=== PATIENT | male | born 1950 | race Caucasian/White ===

== ENCOUNTER 2021-05-18 18:47 | Emergency (ER) | payer MEDICARE, BC ==
[2021-05-18] MEDS ORDERED: Diphtheria,Pertussis(Acell),Tetanus Vaccine 0.5 ML Syringe IM ONE (18:49)
[2021-05-18] MEDS ORDERED: Bupivacaine 0.25% 30 ML SDV INJECT PRN (18:49)
--- NOTE | 2021-05-18 19:26 | CR ---
[id number] RAD/RAD Fingers Left Exam: RAD Fingers Left Indication:TRAUMA, TABLE SAW Comparison: No prior imaging for comparison. Discussion/Impression: Acute fracture and laceration of the 3rd digit involving middle and distal phalanges. Fractures markedly comminuted. Interphalangeal articulation is obliterated. Proximally, fracture may extend to the PIP articulation as well along its ulnar aspect on AP view. No evidence of fracture involving the proximal phalanx. Oskar Ochoa MD 05/18/21 0585 Thank you for allowing us to participate in the care of your patient.
[2021-05-18] MEDS ORDERED: cefTRIAXone 2 GM Vial IVPUSH ONE (20:01)
[2021-05-18] MEDS ORDERED: Sodium Chloride 0.9% 10 ML Syringe FLUSH PRN (20:01)
--- NOTE | 2021-05-18 20:07 | EDM.PDOC ---
ED HPI GENERAL MEDICAL PROBLEM - General Chief Complaint: Laceration Stated Complaint: LACERATION TO FINGER Time Seen by Provider: 05/18/21 18:49 Source of Information: Reports: Patient History Limitations: Reports: No Limitations - History of Present Illness INITIAL COMMENTS - FREE TEXT/NARRATIVE: Patient lives locally and was cutting boards with his table saw and accidentally caught his glove and sustained an injury to the left third finger. He is right handed. No previous injury. Takes an aspirin a day. Unsure of his tetanus, small abrasion to the index finger at the nail tip. - Related Data Allergies Allergy/AdvReac Type Severity Reaction Status Date / Time oxycodone Allergy Nausea and Verified 05/18/21 18:52 Vomiting Home Meds: Home Meds Hydrocodone/Acetaminophen [HYDROcodone-Acetaminophen 5-325 MG] 1 each PO Q6H PRN #30 tab 05/18/21 [Rx] cephALEXin [Keflex] 500 mg PO Q8H 5 Days #20 cap 05/18/21 [Rx] Past Medical History Musculoskeletal History: Reports: Gout Social & Family History - Tobacco Use Tobacco Use Status *Q: Unknown Ever Used Tobacco - Alcohol Use Alcohol Use History: Yes - Recreational Drug Use Recreational Drug Use: No Drug Use in Last 12 Months: No - Living Situation & Occupation Living situation: Reports: with Spouse ED ROS GENERAL - Review of Systems Review Of Systems: See Below Constitutional: Reports: No Symptoms HEENT: Reports: No Symptoms Respiratory: Reports: No Symptoms Cardiovascular: Reports: Dyspnea on Exertion Endocrine: Reports: No Symptoms GI/Abdominal: Reports: No Symptoms : Reports: No Symptoms Musculoskeletal: Reports: Other (left thrid finger laceration and pain) ED EXAM, SKIN/RASH Exam: See Below Exam Limited By: No Limitations General Appearance: Alert, WD/WN, No Apparent Distress Eye Exam: Bilateral Eye: EOMI, Normal Inspection, PERRL Ears: Normal External Exam Throat/Mouth: Normal Inspection, Normal Lips, Normal Voice, No Airway Compromise Head: Atraumatic Neck: Normal Inspection, Supple Respiratory/Chest: No Respiratory Distress, Lungs Clear, Normal Breath Sounds Cardiovascular: Normal Peripheral Pulses, Regular Rate, Rhythm GI/Abdominal: Normal Bowel Sounds, Soft Extremities: Other (left third finger with 7 cm large laceration with bone and tendon involvement. Nail intact. Senstion limited distally. able to flex and extend at te mcp and pip joints. angulation of the distal finger. also small abrasion of the distal index finger, no laceration or suturable repair) ED SKIN PROCEDURES - Laceration/Wound Repair Digit - 3rd (Middle) Appearance: Muscle (and bone), Mildly Contaminated Distal NVT: Other (bone and tendon involvement with limited sensation distally) Anesthetic Type: Digital Local Anesthesia - Bupivicaine (Marcaine): 0.25% Plain Local Anesthetic Volume: Other (10) Skin Prep: Saline Exploration/Debridement/Repair: Wound Explored, Other (multiple bone fragments, tendon injury, ) Closed with: Sutures Lac/Wound length In cm: 7.0 Suture Size: 4-0 # of Sutures: 12 (some horizontal mattress) Suture Type: Interrupted Sterile Dressing Applied: Nurse Tetanus Status Addressed: Yes (given) Progress/Comments: xeroform gauze and tube gauze. Finger is now straight. sensation unable to be checked due to digital block Course - Vital Signs Last Recorded V/S: Last Vital Signs Temp 35.6 C L 05/18/21 18:47 Pulse 63 05/18/21 18:47 Resp 18 05/18/21 18:47 BP 149/73 H 05/18/21 18:47 Pulse Ox 98 05/18/21 18:47 - Orders/Labs/Meds Orders: Active Orders 24 hr Category Date Time Status Vaccine to be Administered/Admin Charge [RC] ASDIRECTED Care 05/18/21 18:50 Active Bupivacaine 0.25% [Marcaine 0.25%] Med 05/18/21 18:49 Active 30 ml INJECT ASDIRECTED PRN Medication Orders Bupivacaine HCl (Bupivacaine 0.25% 30 Ml Sdv) 30 ml INJECT ASDIRECTED PRN PRN Reason: Other Last Admin: 05/18/21 19:28 Dose: 30 ml Documented by: JESSY Meds: Medications Generic Name Dose Route Start Last Admin Trade Name Freq PRN Reason Stop Dose Admin Bupivacaine HCl 30 ml 05/18/21 18:49 05/18/21 19:28 Bupivacaine 0.25% 30 Ml Sdv INJECT 30 ml ASDIRECTED PRN Administration Other Discontinued Medications Generic Name Dose Route Start Last Admin Trade Name Freq PRN Reason Stop Dose Admin Diphtheria/Tetanus/Acell Pertussis 0.5 ml 05/18/21 18:49 05/18/21 19:28 Diphtheria,Pertussis(Acell),Tetanus Vaccine 0.5 Ml Syringe IM 05/18/21 18:50 0.5 ml .ONCE ONE Administration - Radiology Interpretation Free Text/Narrative:: acute fracture and laceration of the 3rd digit involving middle and distal phalanges. fractures markedly comminuted. interphalangeal articulation is obliterated. Proxiamlly the fracture may extend to the PIP articulation as well as along its ulnar aspect on ap view. Post suture films with better alignment of the fracture pieces - Re-Assessments/Exams Free Text/Narrative Re-Assessment/Exam: 05/18/21 20:09 able to approximate the wound margins. Finger is straight, dressing applied. given tetanus and 2 grams of rocephin IV. CAll to DR. Marie, orthopedics electronic device monitor for [facility] to coordinate surgery. 05/18/21 20:43 They will call to set up. Patient given rocpehin and tetanus here. sent home on keflex and hydrocodone. has had allergic reaction in the past. will call if they have problems. return for signs of infection. will have surgery after the distal blood supply establishes itself Departure - Departure Time of Disposition: 20:37 Disposition: Home, Self-Care 01 Clinical Impression: Open fracture of finger of left hand - Discharge Information Prescriptions: Hydrocodone/Acetaminophen [HYDROcodone-Acetaminophen 5-325 MG] 1 each PO Q6H PRN #30 tab PRN Reason: Pain cephALEXin [Keflex] 500 mg PO Q8H 5 Days #20 cap Instructions: Finger Fracture, Adult, [id number] Referrals: Juvenal Akins PA-C [Primary Care Provider] - Additional Instructions: You have an open fracture of the finger. Sutures were placed to approximate the wound. Dr. Marie at [facility] will be calling to schedule an appointment with you in the next 5-7 days. Elevated the hand. Do not use the hand. Keep the dressing in place for the next 36 hours. Then you can remove it and if it is sticking to the wound, apply some water and gently peel off. Apply antibiotic ointment and a non stick dressing and bandage. Make sure to splint the finger along side the 4th finger also. Use the pain medication every 6 hours as needed for pain. This will cause constipation. You were given an antibiotic in the ED. STart the oral antibiotic tomorrow Call for itching or allergic reaction to switch pain medication. If redness, drainage or fever develops, return to the ED. Surgery will be required to help this. Sepsis Event Note (ED) - Focused Exam Vital Signs: Vital Signs Temp Pulse Resp BP Pulse Ox 05/18/21 18:47 35.6 C L 63 18 149/73 H 98 - My Orders Last 24 Hours: My Active Orders 05/18/21 18:49 Bupivacaine 0.25% [Marcaine 0.25%] 30 ml INJECT ASDIRECTED PRN 05/18/21 18:50 Vaccine to be Administered/Admin Charge [RC] ASDIRECTED - Assessment/Plan Last 24 Hours: My Active Orders 05/18/21 18:49 Bupivacaine 0.25% [Marcaine 0.25%] 30 ml INJECT ASDIRECTED PRN 05/18/21 18:50 Vaccine to be Administered/Admin Charge [RC] ASDIRECTED
[2021-05-18] MEDS ORDERED: Take Home: Acetaminophen/HYDROcodone 325-5 MG, 5 Tab Pack PO ONE (20:39)
--- NOTE | 2021-05-18 21:00 | CR ---
[id number] RAD/RAD Fingers Left Exam: RAD Fingers Left Indication:POST REPAIR Comparison: Today Discussion/Impression: There has been reduction of previously seen fracture dislocation of the 3rd digit. Improved alignment of the osseous structures. Oskar Ochoa MD 05/18/[id number] Thank you for allowing us to participate in the care of your patient.
== END 2021-05-18 21:05 | disposition home or self-care (01) ==
LOC: VM.ED 18:47
DX: S62.633B Displaced fracture of distal phalanx of left middle finger, initial encounter for open fracture (principal); Z88.5 Allergy status to narcotic agent; Z23 Encounter for immunization; W27.0XXA Contact with workbench tool, initial encounter
CPT/HCPCS: 12002; 73140-F2; 90471; 90715; 96374; 99283-25; A9270-GY; J0696; J3490

== ENCOUNTER 2022-03-05 13:19 | Emergency (ER) | payer OTHER, MEDICARE, BC ==
[2022-03-05 14:08] LABS: CHLORIDE,CL 103 mmol/L (98-107); SODIUM,NA 138 mmol/L (136-145)
[2022-03-05 14:11] LABS: ANION GAP 10.4 mmol/L (5-15); ESTIMATED GFR 80 mL/min (>=60)
[2022-03-05] MEDS ORDERED: Sodium Chloride 0.9% 1,000 ML IV ONE (17:17)
== END 2022-03-05 15:16 | disposition home or self-care (01) ==
LOC: VM.ED 13:19
DX: S06.0X0A Concussion without loss of consciousness, initial encounter (principal); S00.411A Abrasion of right ear, initial encounter; I10 Essential (primary) hypertension; M10.9 Gout, unspecified
CPT/HCPCS: 36415; 80053; 82550; 83615; 84484; 85025; 86140; 93005; 96360; 99283; J7030